=== PATIENT | male | born 1960 | race Caucasian/White ===

== ENCOUNTER 2018-01-12 09:55 | Emergency (ER) | payer BC, OTHER ==
[2018-01-12 10:16] VITALS: RESP 16
[2018-01-12 11:22] LABS: Basophils # (A) 0.1 k/uL (0-0.2); Basophils % (A) 1 %; Eosinophils # (A) 0.1 k/uL (0-0.7); Eosinophils % (A) 2 %; HCT 49.5 % (39.0-53.0); HGB 15.9 gm/dL (13.0-17.5); Lymphocytes # (A) 1.3 k/uL (1.0-4.8); Lymphocytes % (A) 16 %; MCH 26.6 pg (25.0-35.0); MCHC 32.1 g/dL (31.0-37.0); MCV 82.9 fL (80.0-100.0); Mean Platelet Volume 8.6; Monocytes # (A) 0.5 k/uL (0-1.0); Monocytes % (A) 7 %; Neutrophils % (A) 73 %; Platelet Count 177 k/uL (150-450); RBC 5.98 m/uL (4.30-5.90); RDW 13.3 % (11.5-15.5); WBC 8.2 k/uL (3.8-10.6)
[2018-01-12 11:38] LABS: ALT 27 U/L (21-72); AST 29 U/L (17-59); Albumin 4.2 g/dL (3.5-5.0); Alkaline Phosphatase 66 U/L (38-126); Anion Gap 11 mmol/L; Blood Urea Nitrogen 22 mg/dL (9-20); C Reactive Protein 5.9 mg/L (<10.0); Calcium 9.3 mg/dL (8.4-10.2); Carbon Dioxide 23 mmol/L (22-30); Chloride 110 mmol/L (98-107); Glucose 107 mg/dL (74-99); Magnesium 1.9 mg/dL (1.6-2.3); Phosphorus 4.5 mg/dL (2.5-4.5); Potassium 4.6 mmol/L (3.5-5.1); Sodium 144 mmol/L (137-145); Total Bilirubin 0.3 mg/dL (0.2-1.3); Total Protein 7.5 g/dL (6.3-8.2)
--- NOTE | 2018-01-12 11:40 | XR ---
EXAMINATION TYPE: XR elbow complete RT DATE OF EXAM: 01/12/2018 COMPARISON: NONE HISTORY: 57-year-old male with right elbow pain and swelling for one week, reports cutting his elbow on a metal ladder one week ago TECHNIQUE: 3 views FINDINGS: Degenerative change characterized by marginal spurring in the and small loose bodies. No significant joint effusion. Radial head and neck marginal spurring is also present. Ossific density measuring 12 x 4 mm along the lateral aspect of the elbow could represent old ligamentous injury. No acute fractur e or dislocation. IMPRESSION: Radiocapitellar and ulnotrochlear joint osteoarthrosis with small loose bodies. No acute osseous abno rmality seen.
[2018-01-12] MEDS ORDERED: CEPHALEXIN 500MG STARTER PACK 4 CAP BTL PO STA (11:55)
[2018-01-12] MEDS ORDERED: SULFAMETHOX-TMP 800-160MG 1 EACH TAB PO STA (11:55)
[2018-01-12] MEDS ORDERED: SULFAMETH-TMP DS STARTER PACK 2 TAB BTL PO STA (11:55)
[2018-01-12] MEDS ORDERED: CEPHALEXIN 500 MG CAP PO STA (11:55)
--- NOTE | 2018-01-12 11:57 | ED ---
General Adult HPI - General Chief complaint: Extremity Injury, Upper Stated complaint: Swollen elbow Time Seen by Provider: 01/12/18 10:32 Source: patient, RN notes reviewed, old records reviewed Mode of arrival: ambulatory Limitations: no limitations - History of Present Illness Initial comments: This is a 57-year-old male to the ER for evaluation of right elbow pain. Patient has no traumatic injury of right elbow. No history of diabetes. No history of surgery on elbow, patient does have recent small laceration which is fully healed and some warmth or erythema be effective right elbow. Pain is worse with extension, patient states he otherwise has full range of motion - Related Data Home Medications Medication Instructions Recorded Confirmed amLODIPine BESYLATE [Norvasc] 5 mg PO DAILY 11/25/15 01/12/18 Naproxen Sodium [Aleve] 440 mg PO DAILY PRN 01/12/18 01/12/18 Previous Rx's Medication Instructions Recorded Cephalexin [Keflex] 500 mg PO Q6HR #40 cap 01/12/18 Sulfamethox-Tmp 800-160Mg [Bactrim 2 tab PO BID #40 tab 01/12/18 DS 800-160 mg] Allergies Allergy/AdvReac Type Severity Reaction Status Date / Time No Known Allergies Allergy Verified 01/12/18 10:20 Review of Systems ROS Statement: Those systems with pertinent positive or pertinent negative responses have been documented in the HPI. ROS Other: All systems not noted in ROS Statement are negative. Past Medical History Past Medical History: Hypertension, Osteoarthritis (OA), Sleep Apnea/CPAP/BIPAP Additional Past Medical History / Comment(s): 12/03/15 Pt admitted to floor s/p total L hip arthroplasty. Other HX: DIANNA USES CPAP. LT HIP OA. History of Any Multi-Drug Resistant Organisms: None Reported Past Surgical History: Joint Replacement Additional Past Surgical History / Comment(s): 12/03/15 Total L hip arthroplasty. Other surgery: TOTAL RT HIP 2009. Past Anesthesia/Blood Transfusion Reactions: Motion Sickness Additional Past Anesthesia/Blood Transfusion Reaction / Comment(s): Pt has never received blood. Past Psychological History: No Psychological Hx Reported Smoking Status: Never smoker Past Alcohol Use History: None Reported Past Drug Use History: None Reported - Past Family History Mother Family Medical History: No Reported History Additional Family Medical History / Comment(s): Mother is healthy and is 80 yrs old. Father Family Medical History: No Reported History Additional Family Medical History / Comment(s): Father was healthy. He at age 32 yrs of MVA. General Exam - General Exam Comments Initial Comments: Mild area of cellulitis to medial aspect of elbow, full range of motion of right elbow in flexion and extension, small laceration and anterior aspect of elbow Limitations: no limitations General appearance: alert, in no apparent distress Head exam: Present: atraumatic, normocephalic, normal inspection Eye exam: Present: normal appearance, PERRL, EOMI. Absent: scleral icterus, conjunctival injection, periorbital swelling ENT exam: Present: normal exam, mucous membranes moist Neck exam: Present: normal inspection. Absent: tenderness, meningismus, lymphadenopathy Respiratory exam: Present: normal lung sounds bilaterally. Absent: respiratory distress, wheezes, rales, rhonchi, stridor Cardiovascular Exam: Present: regular rate, normal rhythm, normal heart sounds. Absent: systolic murmur, diastolic murmur, rubs, gallop, clicks GI/Abdominal exam: Present: soft, normal bowel sounds. Absent: distended, tenderness, guarding, rebound, rigid Extremities exam: Present: normal inspection, full ROM, normal capillary refill. Absent: tenderness, pedal edema, joint swelling, calf tenderness Back exam: Present: normal inspection Neurological exam: Present: alert, oriented X3, CN II-XII intact Psychiatric exam: Present: normal affect, normal mood Skin exam: Present: warm, dry, intact, normal color. Absent: rash Course Vital Signs 01/12/18 01/12/18 10:13 12:15 Temperature 98.9 F 98.5 F Pulse Rate 80 83 Respiratory 16 16 Rate Blood Pressure 171/84 155/74 O2 Sat by Pulse 97 95 Oximetry - Reevaluation(s) Reevaluation #1: Patient asked blade) follow-up necessary, is in agreement Medical Decision Making - Medical Decision Making 57 male the ER for evaluation of right elbow pain, right elbow warmth after getting mild laceration to elbow. Laceration is healing and he has healed appropriately. Mild erythema suggestive of cellulitis for range of motion, labwork is normal. Patient started on antibiotics and can be discharged - Lab Data Result diagrams: 01/12/18 11:05 01/12/18 11:05 Lab Results 01/12/18 01/12/18 Range/Units 11:05 11:05 WBC 8.2 (3.8-10.6) k/uL RBC 5.98 H (4.30-5.90) m/uL Hgb 15.9 (13.0-17.5) gm/dL Hct 49.5 (39.0-53.0) % MCV 82.9 (80.0-100.0) fL MCH 26.6 (25.0-35.0) pg MCHC 32.1 (31.0-37.0) g/dL RDW 13.3 (11.5-15.5) % Plt Count 177 (150-450) k/uL Neutrophils % 73 % Lymphocytes % 16 % Monocytes % 7 % Eosinophils % 2 % Basophils % 1 % Neutrophils # 6.0 (1.3-7.7) k/uL Lymphocytes # 1.3 (1.0-4.8) k/uL Monocytes # 0.5 (0-1.0) k/uL Eosinophils # 0.1 (0-0.7) k/uL Basophils # 0.1 (0-0.2) k/uL Sodium 144 (137-145) mmol/L Potassium 4.6 (3.5-5.1) mmol/L Chloride 110 H (98-107) mmol/L Carbon Dioxide 23 (22-30) mmol/L Anion Gap 11 mmol/L BUN 22 H (9-20) mg/dL Creatinine 0.80 (0.66-1.25) mg/dL Est GFR (MDRD) Af Amer >60 (>60 ml/min/1.73 sqM) Est GFR (MDRD) Non-Af >60 (>60 ml/min/1.73 sqM) Glucose 107 H (74-99) mg/dL Calcium 9.3 (8.4-10.2) mg/dL Phosphorus 4.5 (2.5-4.5) mg/dL Magnesium 1.9 (1.6-2.3) mg/dL Total Bilirubin 0.3 (0.2-1.3) mg/dL AST 29 (17-59) U/L ALT 27 (21-72) U/L Alkaline Phosphatase 66 (38-126) U/L C-Reactive Protein 5.9 (<10.0) mg/L Total Protein 7.5 (6.3-8.2) g/dL Albumin 4.2 (3.5-5.0) g/dL - Radiology Data Radiology results: report reviewed (X-ray right elbow is negative), image reviewed Disposition Clinical Impression: Cellulitis of right elbow Disposition: HOME SELF-CARE Condition: Good Instructions: Cellulitis (ED) Prescriptions: Cephalexin [Keflex] 500 mg PO Q6HR #40 cap Sulfamethox-Tmp 800-160Mg [Bactrim DS 800-160 mg] 2 tab PO BID #40 tab Referrals: Larry Desai MD [Primary Care Provider] - 1-2 days
[2018-01-12 12:16] VITALS: BP 155/74; PULSE 83; TEMP 98.5
== END 2018-01-12 12:15 | disposition home or self-care (01) ==
LOC: EC 09:55
DX: L03.113 Cellulitis of right upper limb (principal); I10 Essential (primary) hypertension; G47.30 Sleep apnea, unspecified; Z99.89 Dependence on other enabling machines and devices; Z79.899 Other long term (current) drug therapy
CPT/HCPCS: 36415; 80053; 83735; 84100; 85025; 86140; 87040; 99284

== ENCOUNTER → 2018-01-14 | Outpatient (CLI) | payer OTHER ==
--- NOTE | 2018-01-14 17:09 | US ---
EXAMINATION TYPE: US venous doppler duplex UE RT DATE OF EXAM: 01/14/2018 COMPARISON: NONE CLINICAL HISTORY: M79.601 Pain in right arm. injury to elbow at work 1 week prior and now swelling an d pain to forearm SIDE PERFORMED: Right Right Arm: Appears negative for DVT IMPRESSION: No evidence of deep venous thrombosis in the right arm.
== END | disposition home or self-care (01) ==
LOC: RADUSMAIN 16:03
PROVIDERS: ATTEND Emergency Medicine
DX: M79.601 Pain in right arm (principal); L03.113 Cellulitis of right upper limb

== ENCOUNTER 2018-01-17 17:05 | Emergency (ER) | payer BC, OTHER ==
[2018-01-17 17:57] VITALS: BP 147/77; RESP 16
[2018-01-17] MEDS ORDERED: KETOROLAC 30 MG/ML 1 ML VIAL IVP STA (18:56)
--- NOTE | 2018-01-17 19:17 | ED ---
General Adult HPI - General Source: patient, RN notes reviewed, old records reviewed Mode of arrival: ambulatory Limitations: no limitations <Guy Zayas - Last Filed: 01/17/18 20:19> <Yovanny Fink - Last Filed: 01/17/18 21:17> - General Chief complaint: Extremity Problem,Nontraumatic Stated complaint: Elbow pain Time Seen by Provider: 01/17/18 18:48 - History of Present Illness Initial comments: Patient 57-year-old male who presents emergency room today with a chief complaint of pain swelling to the right upper extremity. Patient admits that approximately a week ago he was at work and extend like cut himself on a sharp piece of steel. He states he did not think much of it at the time. He states he put a Band-Aid on it. He states he noticed some swelling was seen here in the emergency room 5 days ago did have x-rays obtained along with blood work. Patient does admit that his follow-up with employee health through and return here to the emergency room for further evaluation. He does not that he's been on antibiotics of both Bactrim and Keflex over the last 4 days. He states that the swelling has stayed same. He doesn't that he had a recent ultrasound 3 days ago which was negative for any evidence of a DVT. Patient denies any other injury or trauma. Patient denies any recent fever, chills, shortness of breath, chest pain, back pain, abdominal pain, nausea or vomiting, numbness or tingling, headaches or visual changes, or any other complaints. (Guy Zayas ) - Related Data Home Medications Medication Instructions Recorded Confirmed amLODIPine BESYLATE [Norvasc] 5 mg PO DAILY 11/25/15 01/17/18 Naproxen Sodium [Aleve] 440 mg PO DAILY PRN 01/12/18 01/17/18 Aspirin 81 mg PO DAILY 01/17/18 01/17/18 Previous Rx's Medication Instructions Recorded Cephalexin [Keflex] 500 mg PO Q6HR #40 cap 01/12/18 Sulfamethox-Tmp 800-160Mg [Bactrim 2 tab PO BID #40 tab 01/12/18 DS 800-160 mg] Ketorolac [Toradol] 10 mg PO Q6HR #20 tab 01/17/18 Allergies Allergy/AdvReac Type Severity Reaction Status Date / Time No Known Allergies Allergy Verified 01/17/18 19:17 Review of Systems ROS Other: All systems not noted in ROS Statement are negative. <Guy Zayas - Last Filed: 01/17/18 20:19> ROS Other: All systems not noted in ROS Statement are negative. <Yovanny Fink - Last Filed: 01/17/18 21:17> ROS Statement: Those systems with pertinent positive or pertinent negative responses have been documented in the HPI. Past Medical History Past Medical History: Hypertension, Osteoarthritis (OA), Sleep Apnea/CPAP/BIPAP Additional Past Medical History / Comment(s): 12/03/15 Pt admitted to floor s/p total L hip arthroplasty. Other HX: DIANNA USES CPAP. LT HIP OA. History of Any Multi-Drug Resistant Organisms: None Reported Past Surgical History: Joint Replacement Additional Past Surgical History / Comment(s): 12/03/15 Total L hip arthroplasty. Other surgery: TOTAL RT HIP 2009. Past Anesthesia/Blood Transfusion Reactions: Motion Sickness Additional Past Anesthesia/Blood Transfusion Reaction / Comment(s): Pt has never received blood. Past Psychological History: No Psychological Hx Reported Smoking Status: Never smoker Past Alcohol Use History: None Reported Past Drug Use History: None Reported - Past Family History Mother Family Medical History: No Reported History Additional Family Medical History / Comment(s): Mother is healthy and is 80 yrs old. Father Family Medical History: No Reported History Additional Family Medical History / Comment(s): Father was healthy. He at age 32 yrs of MVA. <Guy Zayas - Last Filed: 01/17/18 20:19> General Exam Limitations: no limitations <Guy Zayas - Last Filed: 01/17/18 20:19> <Yovanny Fink - Last Filed: 01/17/18 21:17> - General Exam Comments Initial Comments: General: The patient is awake and alert, in no distress, and does not appear acutely ill. Neck: The neck is supple, there is no tenderness or JVD. Cardiovascular: There is a regular rate and rhythm. No murmur, rub or gallop is appreciated. Respiratory: Lungs are clear to auscultation, respirations are non-labored, breath sounds are equal. No wheezes, stridor, rales, or rhonchi. Musculoskeletal: Patient does have mild tenderness to the medial aspect of the right elbow. Shows full range motion. Sensations are intact. Pulses equal bilaterally 2+. Mild redness seen medial aspect. No lymphangitic streaking. Neurological: A&O x 3. CN II-XII intact, There are no obvious motor or sensory deficits. Coordination appears grossly intact. Speech is normal. Skin: Skin is warm and dry and no rashes or lesions are noted. Psychiatric: Normal mood and affect. (Guy Zayas) Course <Guy Zayas - Last Filed: 01/17/18 20:19> <Yovanny Fink - Last Filed: 01/17/18 21:17> Vital Signs 01/17/18 17:54 Temperature 98.1 F Pulse Rate 82 Respiratory 16 Rate Blood Pressure 147/77 O2 Sat by Pulse 97 Oximetry - Reevaluation(s) Reevaluation #1: 01/17/18 20:19 Patient's labs have been reviewed. Patient awaiting for US at this time. Case discussed and signed out to Dr Fink. (Guy Zayas) Medical Decision Making - Lab Data Result diagrams: 01/17/18 19:18 01/17/18 19:18 <Guy Zayas - Last Filed: 01/17/18 20:19> - Lab Data Result diagrams: 01/17/18 19:18 01/17/18 19:18 - Radiology Data Radiology results: report reviewed (I did review the imaging no acute findings.) , image reviewed <Yovanny Fink - Last Filed: 01/17/18 21:17> - Medical Decision Making I did examine the patient and the findings are consistent with a medial epicondylitis of the right upper extremity. Patient will be placed on a different anti-inflammatory he does have an appointment with orthopedics in 2 days he is to keep this follow-up. Additionally he was recommended to use warm compresses to the area. He is in agreement with this the remainder the exam is unremarkable no evidence of any infectious processes at this time there is a healing wound over the lateral aspect of the proximal right forearm. The pulses are equal bilaterally +2 are +2. No sensory or motor deficits. Additionally is no evidence of any axillary lymphadenopathy. The epitrochlear node is in the same proximity on the right is some mild tenderness over the medial condyle no definite no tenderness. (Yovanny Fink) - Lab Data Lab Results 01/17/18 01/17/18 Range/Units 19:18 19:18 WBC 9.2 (3.8-10.6) k/uL RBC 6.03 H (4.30-5.90) m/uL Hgb 15.9 (13.0-17.5) gm/dL Hct 51.0 (39.0-53.0) % MCV 84.6 (80.0-100.0) fL MCH 26.4 (25.0-35.0) pg MCHC 31.2 (31.0-37.0) g/dL RDW 13.6 (11.5-15.5) % Plt Count 187 (150-450) k/uL Neutrophils % 71 % Lymphocytes % 16 % Monocytes % 7 % Eosinophils % 2 % Basophils % 1 % Neutrophils # 6.5 (1.3-7.7) k/uL Lymphocytes # 1.5 (1.0-4.8) k/uL Monocytes # 0.7 (0-1.0) k/uL Eosinophils # 0.2 (0-0.7) k/uL Basophils # 0.1 (0-0.2) k/uL Sodium 143 (137-145) mmol/L Potassium 4.6 (3.5-5.1) mmol/L Chloride 107 (98-107) mmol/L Carbon Dioxide 23 (22-30) mmol/L Anion Gap 13 mmol/L BUN 16 (9-20) mg/dL Creatinine 0.90 (0.66-1.25) mg/dL Est GFR (MDRD) Af Amer >60 (>60 ml/min/1.73 sqM) Est GFR (MDRD) Non-Af >60 (>60 ml/min/1.73 sqM) Glucose 87 (74-99) mg/dL Calcium 9.4 (8.4-10.2) mg/dL Disposition <Guy Zayas - Last Filed: 01/17/18 20:19> <Yovanny Fink - Last Filed: 01/17/18 21:17> Clinical Impression: Medial epicondylitis, right elbow Disposition: ADMITTED IP TO THIS HOSP Condition: Stable Instructions: Tennis Elbow (ED) Prescriptions: Ketorolac [Toradol] 10 mg PO Q6HR #20 tab Referrals: Larry Desai MD [Primary Care Provider] - 1-2 days
[2018-01-17 19:34] LABS: Basophils # (A) 0.1 k/uL (0-0.2); Basophils % (A) 1 %; Eosinophils # (A) 0.2 k/uL (0-0.7); Eosinophils % (A) 2 %; HGB 15.9 gm/dL (13.0-17.5); Lymphocytes # (A) 1.5 k/uL (1.0-4.8); Lymphocytes % (A) 16 %; MCH 26.4 pg (25.0-35.0); MCHC 31.2 g/dL (31.0-37.0); MCV 84.6 fL (80.0-100.0); Mean Platelet Volume 8.1; Monocytes # (A) 0.7 k/uL (0-1.0); Monocytes % (A) 7 %; Neutrophils # (A) 6.5 k/uL (1.3-7.7); Neutrophils % (A) 71 %; Platelet Count 187 k/uL (150-450); RBC 6.03 m/uL (4.30-5.90); RDW 13.6 % (11.5-15.5); WBC 9.2 k/uL (3.8-10.6)
[2018-01-17 19:42] LABS: Anion Gap 13 mmol/L; Blood Urea Nitrogen 16 mg/dL (9-20); Calcium 9.4 mg/dL (8.4-10.2); Carbon Dioxide 23 mmol/L (22-30); Chloride 107 mmol/L (98-107); Glucose 87 mg/dL (74-99); Potassium 4.6 mmol/L (3.5-5.1); Sodium 143 mmol/L (137-145)
--- NOTE | 2018-01-17 20:57 | US ---
EXAMINATION TYPE: US venous doppler duplex UE RT DATE OF EXAM: 01/17/2018 COMPARISON: NONE CLINICAL HISTORY: Pain. Right arm pain. SIDE PERFORMED: Right Right Arm: Negative for DVT No evidence of DVT right arm. IMPRESSION: Negative exam. No sign of deep venous thrombosis in the right arm.
[2018-01-17 21:44] VITALS: PULSE 80; TEMP 98
== END 2018-01-17 21:44 | disposition other institution (70) ==
LOC: EC 17:05
DX: M77.01 Medial epicondylitis, right elbow (principal); I10 Essential (primary) hypertension; G47.30 Sleep apnea, unspecified; Z96.643 Presence of artificial hip joint, bilateral; Z99.89 Dependence on other enabling machines and devices; Z79.82 Long term (current) use of aspirin; Z79.899 Other long term (current) drug therapy; W26.8XXD Contact with other sharp object(s), not elsewhere classified, subsequent encounter; Y92.69 Other specified industrial and construction area as the place of occurrence of the external cause; Y99.0 Civilian activity done for income or pay
CPT/HCPCS: 36415; 80048; 85025; 87040; 93971; 99284; 96374; J1885

== ENCOUNTER 2020-10-21 08:16 | Emergency (ER) | payer BC ==
[~2020-10-21 08:16] MED LIST: CALCIUM CHLORIDE 100 MG/ML 10 ML SYRINGE ONE; EPINEPHrine 10 ML SYRINGE (0.1 MG/ML) ONE; SODIUM BICARB 8.4% 50 ML SYR (1 MEQ/ML) ONE
--- NOTE | 2020-10-21 08:41 | ED ---
General Adult HPI - General Chief complaint: Cardiac Arrest/CPR Stated complaint: cardiac Source: EMS Mode of arrival: EMS Limitations: altered mental status, physical limitation - History of Present Illness Initial comments: Dictation was produced using [employer] dictation software. please excuse any grammatical, word or spelling errors. This patient was cared for during a federal and state declared state of emergency secondary to Covid 19 Chief Complaint: 60-year-old male brought in for cardiac arrest History of Present Illness: Patient is a 60-year-old male he is brought in by EMS for cardiac arrest. HPI obtained by EMS. EMS was called for difficulty in breathing. Patient allegedly became very dyspneic at work. EMS reports that coworkers try to hold them up against the wall because started on the study. EMS arrived on scene and patient became unresponsive. CPR was initiated. EMS reports that cardiac rhythm was asystole. Patient packaged and brought to the emergency department. He underwent almost 45 minutes of cardiopulmonary resuscitation. He received 7 at doses of epinephrine. Rosc was not obtained at any point. EMS has no information to medical history. Unable to obtain significant mental status PHYSICAL EXAM: General Impression: Tender, fixed and dilated pupils, cyanotic from the shoulders cephalad, obese, rotund abdomen HEENT: Normocephalic atraumatic Cardiovascular: Pulseless Chest: Bilateral breath sounds with BVM Abdomen: abdomen soft, nonrigid Musculoskeletal: Bilateral Symmetrical girth at the mid calf to the lower extremities, no peripheral edema Neurological: Fixed and dilated pupils ED course: 60 yo male presents after cardiac arrest. Patient was received in trauma bay #1. CPR was continued. Patient was pulseless on arrival. precision lathe operator continued to show asystole. Patient was cyanotic. Patient was coded for another several minutes urine emergency department. Patient was persistently asystolic. Clinical care bedside ultrasound shows cardiac standstill. Given that patient's downtime was approximately 50 minutes with continuous asystole and cardiac standstill on bedside ultrasound CPR efforts were discontinued. Time of was 8:20 AM. Case is discussed with family. They report that patient did not have any complaints or last couple days. He did not see the patient this morning because he usually gets up in the morning before everybody else. They reported he had not had any cardiac medical comorbidities. He did allegedly follow up regularly with his primary care physician for his annual physical exams. At this point cause of from cardiac arrest is unclear if there is concern that perhaps this was caused by massive pulmonary embolus versus coronary artery thrombosis. Case is discussed with Lauren from the biomedical engineering technologist's office. - Related Data Home Medications Medication Instructions Recorded Confirmed amLODIPine BESYLATE [Norvasc] 5 mg PO DAILY 11/25/15 01/17/18 Naproxen Sodium [Aleve] 440 mg PO DAILY PRN 01/12/18 01/17/18 Aspirin 81 mg PO DAILY 01/17/18 01/17/18 Previous Rx's Medication Instructions Recorded Cephalexin [Keflex] 500 mg PO Q6HR #40 cap 01/12/18 Sulfamethox-Tmp 800-160Mg [Bactrim 2 tab PO BID #40 tab 01/12/18 DS 800-160 mg] Ketorolac [Toradol] 10 mg PO Q6HR #20 tab 01/17/18 Allergies Allergy/AdvReac Type Severity Reaction Status Date / Time No Known Allergies Allergy Verified 01/17/18 19:17 Review of Systems ROS Statement: Those systems with pertinent positive or pertinent negative responses have been documented in the HPI. ROS Other: All systems not noted in ROS Statement are negative. Past Medical History Past Medical History: Hypertension, Osteoarthritis (OA), Sleep Apnea/CPAP/BIPAP Additional Past Medical History / Comment(s): 12/03/15 Pt admitted to floor s/p total L hip arthroplasty. Other HX: DIANNA USES CPAP. LT HIP OA. History of Any Multi-Drug Resistant Organisms: None Reported Past Surgical History: Joint Replacement Additional Past Surgical History / Comment(s): 12/03/15 Total L hip arthroplasty. Other surgery: TOTAL RT HIP 2009. Past Anesthesia/Blood Transfusion Reactions: Motion Sickness Additional Past Anesthesia/Blood Transfusion Reaction / Comment(s): Pt has never received blood. Past Psychological History: No Psychological Hx Reported Smoking Status: Unknown if ever smoked Past Alcohol Use History: None Reported Past Drug Use History: None Reported - Past Family History Mother Family Medical History: No Reported History Additional Family Medical History / Comment(s): Mother is healthy and is 80 yrs old. Father Family Medical History: No Reported History Additional Family Medical History / Comment(s): Father was healthy. He at age 32 yrs of MVA. General Exam Limitations: altered mental status, physical limitation Disposition Clinical Impression: Sudden cardiac Disposition: Condition: Undetermined Referrals: None,Stated [REFERRING] - 1-2 days Time of Disposition: 10:15 Preliminary Cause of : cardiac arrest
[2020-10-21] MEDS ORDERED: CHLORHEXIDINE GLUCONATE 15 ML CUP MUCOUS MEM ONE (16:03)
== END 2020-10-21 11:59 | disposition expired ==
LOC: SUPCPDRO 08:16 → EC 08:16
DX: I46.9 Cardiac arrest, cause unspecified (principal); R23.0 Cyanosis; I10 Essential (primary) hypertension; M16.12 Unilateral primary osteoarthritis, left hip; G47.33 Obstructive sleep apnea (adult) (pediatric); Z79.899 Other long term (current) drug therapy; Z79.82 Long term (current) use of aspirin; Z99.89 Dependence on other enabling machines and devices; Z96.642 Presence of left artificial hip joint
CPT/HCPCS: 99285; 92950; J0171